=== PATIENT | female | born 1990 | race Asian ===

== ENCOUNTER 2016-10-21 09:50 | Emergency (ER) | payer MEDICAID ==
[~2016-10-21] VITALS: Ht 147.3 cm; Wt 45.4 kg
[2016-10-21 09:57] VITALS: BP 116/86
--- NOTE | 2016-10-21 10:05 | NUR ---
PATIENT PRESENTS TO ED WITH SADLER, NECK AND BACK PAIN . PT STATES . DENIES N/V/D; SKIN IS PINK/WARM/DRY; AAOX4 WITH EVEN AND STEADY GAIT; LUNGS CLEAR BL; HR EVEN AND REGULAR; PT DENIES ANY FEVER, CP, SOB, OR COUGH AT THIS TIME; PATIENT STATES PAIN OF 5/10 AT THIS TIME, REFUSING ANALGESIC AT THIS TIME; VSS; PATIENT POSITIONED FOR COMFORT; HOB ELEVATED; BEDRAILS UP X2; BED DOWN. ER MD MADE AWARE OF PT STATUS.
--- NOTE | 2016-10-21 10:13 | NUR ---
PT TO X-RAY VIA WHEEL CHAIR , A/O X 4
--- NOTE | 2016-10-21 10:25 | NUR ---
RETURNED FROM X-RAY
--- NOTE | 2016-10-21 10:40 | NUR ---
SPOKE WITH PT---PT TO BE DISCHARGED
[2016-10-21 11:06] VITALS: BP 98/63
--- NOTE | 2016-10-21 11:06 | NUR ---
Patient discharged with v/s stable. Written and verbal after care instructions given and explained. Patient alert, oriented and verbalized understanding of instructions. Ambulatory with steady gait. All questions addressed prior to discharge. ID band removed. Patient advised to follow up with PMD. Rx of MOTRIN/ ROBAXIN given. Patient educated on indication of medication including possible reaction and side effects. Opportunity to ask questions provided and answered.
== END 2016-10-21 11:06 | disposition home or self-care (01) ==
LOC: MED 09:50
DX: S16.1XXA Strain of muscle, fascia and tendon at neck level, initial encounter (principal); Z88.0 Allergy status to penicillin; Z86.2 Personal history of diseases of the blood and blood-forming organs and certain disorders involving the immune mechanism; V49.49XA Driver injured in collision with other motor vehicles in traffic accident, initial encounter; Y93.I9 Activity, other involving external motion; Y92.411 Interstate highway as the place of occurrence of the external cause; Y99.8 Other external cause status
CPT/HCPCS: 72040; 99284